=== PATIENT | male | born 1975 | race Caucasian/White ===

== ENCOUNTER 2019-01-06 07:00 | Emergency (ER) | payer MEDICAID ==
[2019-01-06] MEDS ORDERED: Penicillin V Potassium 250 MG Tab PO ONE (07:01)
[2019-01-06] MEDS ORDERED: Acetaminophen/Codeine 300-30 MG Tab PO ONE (07:01)
--- NOTE | 2019-01-06 07:52 | EDM.PDOC ---
ED HPI GENERAL MEDICAL PROBLEM - General Chief Complaint: ENT Problem Stated Complaint: TOOTH PAIN Time Seen by Provider: 01/06/19 07:52 Source of Information: Reports: Patient History Limitations: Reports: No Limitations - History of Present Illness INITIAL COMMENTS - FREE TEXT/NARRATIVE: Moderate tooth pain x 3 days,with swelling,left lower jaw. Nothing helps,no fever. No difficulty swallowing. Has ?brain cancer also-for which he is seeking no further treatment - Related Data Allergies Allergy/AdvReac Type Severity Reaction Status Date / Time No Known Allergies Allergy Verified 03/11/14 15:49 Home Meds: Home Meds Amoxicillin 500 mg PO TID #30 tab 03/11/14 [Rx] Naproxen [Naprosyn] 500 mg PO Q12HR #30 tab 03/11/14 [Rx] Past Medical History - Past Health History Medical/Surgical History: Denies Medical/Surgical History Social & Family History - Family History Family Medical History: Noncontributory - Tobacco Use Smoking Status *Q: Current Every Day Smoker Years of Tobacco use: 30 Packs/Tins Daily: 0.5 Used Tobacco, but Quit: No - Caffeine Use Caffeine Use: Reports: None - Recreational Drug Use Recreational Drug Use: Yes ED ROS ENT - Review of Systems Review Of Systems: ROS reveals no pertinent complaints other than HPI. ED EXAM, ENT - Physical Exam Exam: See Below Text/Narrative:: Left mandible swollen,firm,tender. Multiple dental cavities ont hat side,with swollen gum Exam Limited By: No Limitations General Appearance: Alert, WD/WN Course - Vital Signs Last Recorded V/S: Last Vital Signs Temp 98.2 F 01/06/19 07:25 Pulse 88 01/06/19 07:25 Resp 16 01/06/19 07:25 BP 121/85 01/06/19 07:25 Pulse Ox 95 01/06/19 07:25 Departure - Departure Time of Disposition: 08:21 Disposition: Home, Self-Care 01 Condition: Good Clinical Impression: Dental caries - Discharge Information Instructions: Dental Abscess Referrals: PCP,None [Primary Care Provider] - Forms: ED Department Discharge Additional Instructions: make an appointment with a Dentist. Follow up with Primary Care Doctor as needed. - Problem List & Annotations (1) Dental abscess SNOMED Code(s): 679970656 Code(s): K04.7 - PERIAPICAL ABSCESS WITHOUT SINUS Status: Acute Current Visit: Yes (2) Dental caries SNOMED Code(s): 25243744 Code(s): K02.9 - DENTAL CARIES, UNSPECIFIED Status: Acute Current Visit: Yes - Problem List Review Problem List Initiated/Reviewed/Updated: Yes - Assessment/Plan Plan: PCN and Tylenol #3 for pain.Advised to see dentist
== END 2019-01-06 08:00 | disposition home or self-care (01) ==
LOC: FB.ED 07:00
DX: K02.9 Dental caries, unspecified (principal); F17.210 Nicotine dependence, cigarettes, uncomplicated
CPT/HCPCS: 99282; A9270-GY

== ENCOUNTER 2019-04-20 18:49 | Emergency (ER) | payer MEDICAID ==
[2019-04-20] MEDS ORDERED: Clindamycin HCl 150 MG Cap PO ONE (19:37)
[2019-04-20] MEDS ORDERED: Saccharomyces Boulardii (Probiotic) 250 MG Cap PO ONE (19:38)
--- NOTE | 2019-04-20 19:43 | EDM.PDOC ---
ED HPI GENERAL MEDICAL PROBLEM - General Chief Complaint: ENT Problem Stated Complaint: TOOTH PAIN Time Seen by Provider: 04/20/19 19:24 Source of Information: Reports: Patient, Family (Mother) History Limitations: Reports: No Limitations - History of Present Illness INITIAL COMMENTS - FREE TEXT/NARRATIVE: 43-year-old male with history of poor dentition and dental abscesses who reports increased swelling and increased pain along left lower jaw and remnant teeth for the past 2 days. He has had no fevers or chills. He is able to swallow normally. He has had no nausea or vomiting. He rates pain as a 2/10. It is aching. The pain is worse with palpation. There is no difficulty breathing. There are no other associated signs or symptoms. There are no other modifying factors. Onset: Other (Ongoing problems with teeth but worsening over the past 2 days) Duration: Getting Worse Location: Reports: Face (Dental and left lower jaw) Quality: Reports: Ache Severity: Mild Improves with: Reports: None Worsens with: Reports: None Context: Reports: Other (Not applicable) Associated Symptoms: Reports: No Other Symptoms Treatments [employer]: Reports: Acetaminophen - Related Data Allergies Allergy/AdvReac Type Severity Reaction Status Date / Time No Known Allergies Allergy Verified 01/06/19 08:35 Home Meds: Home Meds Clindamycin HCl 450 mg PO TID 10 Days #90 capsule 04/20/19 [Rx] Saccharomyces Boulardii [Florastor] 250 mg PO BID #30 capsule 04/20/19 [Rx] Past Medical History HEENT History: Reports: Other (See Below) Other HEENT History: recurrent toothache, poor dental hygiene. Neurological History: Reports: Other (See Below) Other Neuro History: patient has brain tumor since the and has had chemotherapy and radiation treatment at time but none since that time and refuses any further treatment or follow-up. Psychiatric History: Reports: Antisocial Behaviors, Depression, Other (See Below ) Other Psychiatric History: mother states that patient is an anti-social and has been depressed but not seeing anybody and refused to take any medication. States that he has no plan of hurting himself. Appear shy and avoids eye contact. Oncologic (Cancer) History: Reports: Brain - Past Surgical History Neurological Surgical History: Reports: Other (See Below) (Brain biopsy; BOBCAT DRIVER/LABOR shunt) Social & Family History - Tobacco Use Smoking Status *Q: Current Every Day Smoker Years of Tobacco use: 30 Packs/Tins Daily: 0.5 - Caffeine Use Caffeine Use: Reports: Coffee - Alcohol Use Alcohol Use History: No - Recreational Drug Use Recreational Drug Use: No - Living Situation & Occupation Living situation: Reports: Single Occupation: Disabled Social History Comment: He is here with his mother. ED ROS ENT - Review of Systems Review Of Systems: See Below Constitutional: Reports: No Symptoms HEENT: Reports: Dental Pain, Other (Left lower jaw swelling and facial erythema) Respiratory: Reports: No Symptoms Cardiovascular: Reports: No Symptoms Endocrine: Reports: No Symptoms GI/Abdominal: Reports: No Symptoms : Reports: No Symptoms Musculoskeletal: Reports: No Symptoms Skin: Reports: Erythema (On the left lower jaw) Neurological: Reports: No Symptoms Hematologic/Lymphatic: Reports: No Symptoms Immunologic: Reports: No Symptoms ED EXAM, ENT - Physical Exam Exam: See Below Exam Limited By: No Limitations General Appearance: Alert, WD/WN, No Apparent Distress Eye Exam: Bilateral Eye: EOMI, Normal Inspection Ears: Normal External Exam Nose: Normal Inspection, Normal Mucousa Mouth/Throat: Dental Abcess, Dental Pain, Dental Tenderness, Gum Swelling, Other (Tender, indurated and possibly fluctuant area along the lower jaw.) Head: Atraumatic, Normocephalic Neck: Normal Inspection, Supple, Non-Tender, Full Range of Motion Respiratory/Chest: No Respiratory Distress, Lungs Clear, Normal Breath Sounds, No Accessory Muscle Use Cardiovascular: Normal Peripheral Pulses, Regular Rate, Rhythm, No JVD GI/Abdominal: Normal Bowel Sounds, Soft, No Mass Back: Normal Inspection, Full Range of Motion Extremities: Normal Inspection, Normal Range of Motion, Non-Tender, No Pedal Edema, Normal Capillary Refill Neurological: Alert, Oriented, CN II-XII Intact, No Motor/Sensory Deficits Skin: Warm, Dry, Intact, No Rash Course - Vital Signs Last Recorded V/S: Last Vital Signs Temp 36.9 C 04/20/19 19:18 Pulse 86 04/20/19 19:18 Resp 16 04/20/19 19:18 BP 101/64 04/20/19 19:18 Pulse Ox 99 04/20/19 19:18 - Orders/Labs/Meds Orders: Active Orders 24 hr Category Date Time Status Clindamycin HCl [Cleocin] Med 04/20/19 19:37 Once 450 mg PO ONETIME ONE Saccharomyces Boulardii [Florastor] Med 04/20/19 19:38 Once 500 mg PO ONETIME ONE Medication Orders Clindamycin HCl (Cleocin) 450 mg PO ONETIME ONE Stop: 04/20/19 19:38 Saccharomyces Boulardii (Florastor) 500 mg PO ONETIME ONE Stop: 04/20/19 19:39 Meds: Medications Generic Name Dose Route Start Last Admin Trade Name Martín PRN Reason Stop Dose Admin Clindamycin HCl 450 mg 04/20/19 19:37 Cleocin PO 04/20/19 19:38 ONETIME ONE Saccharomyces Boulardii 500 mg 04/20/19 19:38 Florastor PO 04/20/19 19:39 ONETIME ONE - Re-Assessments/Exams Free Text/Narrative Re-Assessment/Exam: 04/20/19 19:46: Patient appears in no acute distress. He does have a dental abscess but would not consider I&D at this point. The mother reports that she has been unable to get in to see a dentist. I stressed to her that he needs follow-up with a dentist to get these troublesome teeth remnants removed. Departure - Departure Time of Disposition: 19:50 Disposition: Home, Self-Care 01 Condition: Good Clinical Impression: Dental caries, Dental abscess - Discharge Information *PRESCRIPTION DRUG MONITORING PROGRAM REVIEWED*: Yes *COPY OF PRESCRIPTION DRUG MONITORING REPORT IN PATIENT DIANNE: No Prescriptions: Clindamycin HCl 450 mg PO TID 10 Days #90 capsule Saccharomyces Boulardii [Florastor] 250 mg PO BID #30 capsule Referrals: PCP,None [Primary Care Provider] - Additional Instructions: You have a left lower dental abscess. You need to see a dentist as soon as you can arrange. Drink plenty of fluids. Medication as prescribed (clindamycin 950 mg, Florastor). Back to the emergency department for increasing swelling, trouble swallowing, high fever or any other concerning sign or - My Orders Last 24 Hours: My Active Orders 04/20/19 19:37 Clindamycin HCl [Cleocin] 450 mg PO ONETIME ONE 04/20/19 19:38 Saccharomyces Boulardii [Florastor] 500 mg PO ONETIME ONE - Assessment/Plan Last 24 Hours: My Active Orders 04/20/19 19:37 Clindamycin HCl [Cleocin] 450 mg PO ONETIME ONE 04/20/19 19:38 Saccharomyces Boulardii [Florastor] 500 mg PO ONETIME ONE
== END 2019-04-20 19:58 | disposition home or self-care (01) ==
LOC: FB.ED 18:49
DX: K04.7 Periapical abscess without sinus (principal); K02.9 Dental caries, unspecified; F17.210 Nicotine dependence, cigarettes, uncomplicated
CPT/HCPCS: 99282; A9270